=== PATIENT | female | born 1980 | race African-American/Black ===

== ENCOUNTER 2016-12-14 13:46 | Emergency (ER) | payer SELFPAY ==
[~2016-12-14] VITALS: Ht 172.7 cm; Wt 112.6 kg
[2016-12-14 13:52] VITALS: BP 122/76; PULSE 82; RESP 16; TEMP 98.1; O2SAT 99
--- NOTE | 2016-12-14 15:14 | RADRPT ---
EXAM DATE/TIME: 12/14/2016 14:36 [place] COMPARISON: No previous studies available for comparison. INDICATIONS : Patient fell going [employer] the [employer] three days ago. MEDICAL HISTORY : None. SURGICAL HISTORY : None. ENCOUNTER: Initial ACUITY: 3 days PAIN SCORE: 7/10 LOCATION: Left Knee, Lateral side FINDINGS: Four view examination of the left knee demonstrates no evidence of fracture or dislocation. Bony min eralization is normal. The articular surfaces are intact. Some loss of joint space in the medial tib iofemoral joint compartment characteristic of early osteoarthritis. The suprapatellar soft tissues ríos ve a normal configuration. CONCLUSION: 1. Early osteoarthritic changes. 2. No fracture or effusion. Chris Morley MD on December 14, 2016 at 14:52 Board Certified Radiologist. This report was verified electronically.
--- NOTE | 2016-12-14 15:40 | PD ---
HPI Chief Complaint: Injury Time Seen by Provider: 14:30 Travel History International Travel<30 days: No Contact w/Intl Traveler<30days: No Traveled to known affect area: No History of Present Illness HPI 36-year-old female presents to the emergency room for evaluation of left knee pain and swelling after falling on it 3 days ago. Patient slipped and fell on wet pavement. She reports radiation into her lower leg. States the more she walks on it, the more hurts and more swollen and it becomes. She has not taken anything for her symptoms. She tried to elevate without significant relief. She has not applied ice. Denies paresthesias. She has been ambulatory. No other injuries. PFSH Past Medical History Medical History: Denies Significant Hx Tetanus Vaccination: < 5 Years Influenza Vaccination: No ?: Not Ovarian Cysts: Yes Past Surgical History Hysterectomy: Yes Social History Alcohol Use: Yes (occas. mix drinks) Tobacco Use: Yes (5 cigs a day) Substance Use: No Allergies-Medications (Allergen,Severity, Reaction): Coded Allergies: No Known Allergies (Unverified , 12/14/16) Reported Meds & Prescriptions Reported Meds & Active Scripts Active No Active Prescriptions or Reported Medications Review of Systems Except as stated in HPI: all other systems reviewed are Neg Physical Exam Narrative GENERAL: Well-nourished, well-developed female in no acute distress. Afebrile. Ambulatory. SKIN: Focused skin assessment warm/dry. No erythema or ecchymosis. HEAD: Normocephalic. EYES: No scleral icterus. No injection or drainage. NECK: Supple, trachea midline. No JVD or lymphadenopathy. CARDIOVASCULAR: Regular rate and rhythm without murmurs, gallops, or rubs. RESPIRATORY: Breath sounds equal bilaterally. No accessory muscle use. MUSCULOSKELETAL: No cyanosis. There is some edema just over the patella. No effusion or significant knee edema. 2+ dorsalis pedis pulse. Full range of motion of the knee. Data Data Last Documented VS Vital Signs Date Time Temp Pulse Resp B/P Pulse Ox O2 Delivery O2 Flow Rate FiO2 12/14/16 13:52 98.1 82 16 122/76 99 Orders Knee, Complete (4vws) (12/14/16 ) [facility] Medical Decision Making Medical Screen Exam Complete: Yes Emergency Medical Condition: Yes Medical Record Reviewed: Yes Differential Diagnosis Contusion, soft tissue injury, internal derangement Narrative Course 36-year-old female presents to the emergency room for evaluation of knee pain and swelling for the past 3 days. Patient slipped and fell on wet pavement. Denies any other injuries. Since then she has had worsening pain and swelling the more she walks on it. Left lower extremity is neurovascularly intact with 2 + sauce pedis pulse. Full range of motion. No significant erythema, edema, or ecchymosis. X-ray is negative. Patient told to follow up with a primary care physician if symptoms persist for outpatient MRI. Told to return for worsening symptoms. She understands and agrees to plan. Diagnosis Primary Impression: Contusion of knee, left Qualified Code: S80.02XA - Contusion of left knee, initial encounter Referrals: Primary Care Physician Patient Instructions: Contusion in Adults (ED), General Instructions Additional Instructions: Rest and drink plenty of fluids. Take ibuprofen with food as directed, as needed for pain. Apply ice to the affected area for 20 minutes at a time, as needed for pain and swelling. Follow-up with a primary care physician. Return to the emergency room for worsening symptoms. Scripts No Active Prescriptions or Reported Meds Disposition: 01 DISCHARGE HOME Condition: Stable Dora Rodriguez Dec 14, 2016 15:40
[2016-12-14 15:54] VITALS: BP 128/78
== END 2016-12-14 15:56 | disposition home or self-care (01) ==
LOC: PHEFT 13:46
DX: S80.02XA Contusion of left knee, initial encounter (principal); F17.210 Nicotine dependence, cigarettes, uncomplicated; W01.0XXA Fall on same level from slipping, tripping and stumbling without subsequent striking against object, initial encounter; Y99.8 Other external cause status
CPT/HCPCS: 73564; 99283